=== PATIENT | female | born 1970 | race Caucasian/White ===

== ENCOUNTER 2016-03-10 12:46 | Emergency (ER) | payer MEDICARE | END 2016-03-10 15:59 | disposition home or self-care (01) | LOC: ER 12:46 | DX: R00.2 Palpitations (principal); R07.89 Other chest pain; J45.909 Unspecified asthma, uncomplicated | CPT/HCPCS: 71020; 93005 ==

== ENCOUNTER 2016-03-28 17:44 | Emergency (ER) | payer MEDICARE | END 2016-03-28 22:17 | disposition home or self-care (01) | LOC: ER 17:44 | DX: B37.3 Candidiasis of vulva and vagina (principal); R10.31 Right lower quadrant pain | CPT/HCPCS: 36415; 80053; 81003; 83690; 85025 ==